=== PATIENT | male | born 1985 | race Hispanic/Latino ===

== ENCOUNTER 2016-09-04 06:19 | Emergency (ER) | payer OTHER ==
[2016-09-04 06:19] VITALS: BMI 19.9
[2016-09-04 06:45] VITALS: O2SAT 100
--- NOTE | 2016-09-04 07:58 | C.PDOC ---
History Of Present Illness 31-year-old male, presents to the emergency department with complaints of pain to right shoulder and right hip s/p fall from standing, yesterday. Patient took one Aleve with minimal relief. No head/neck trauma. No other complaints. - HPI Time Seen by Provider: 09/04/16 07:08 Chief Complaint (Nursing): Trauma History Per: Patient History/Exam Limitations: no limitations Onset/Duration Of Symptoms: Days Past Medical History Reviewed: Historical Data, Nursing Documentation, Vital Signs Vital Signs: Last Vital Signs Temp 97.9 F 09/04/16 08:16 Pulse 74 09/04/16 08:16 Resp 16 09/04/16 08:16 BP 130/80 09/04/16 08:16 Pulse Ox 100 09/04/16 08:16 - Medical History PMH: Asthma, Back Problems (scoliosis) Denies: Diabetes, Hepatitis, HIV, HTN, Seizures, Sexually Transmitted Disease Family History: States: Unknown Family Hx - Social History Hx Tobacco Use: No Hx Alcohol Use: No Hx Substance Use: No - Immunization History Hx Tetanus Toxoid Vaccination: Yes Hx Influenza Vaccination: Yes Hx Pneumococcal Vaccination: Yes Review Of Systems Except As Marked, All Systems Reviewed And Found Negative. Constitutional: Negative for: Fever, Chills Cardiovascular: Negative for: Chest Pain, Palpitations Respiratory: Negative for: Cough, Shortness of Breath Gastrointestinal: Negative for: Vomiting Musculoskeletal: Negative for: Back Pain Skin: Negative for: Rash Neurological: Negative for: Weakness, Numbness Physical Exam - Physical Exam Appears: Non-toxic, No Acute Distress Head: Atraumatic, Normacephalic Eye(s): bilateral: Normal Inspection, PERRL Nose: Normal Oral Mucosa: Moist Lips: Normal Appearing Neck: Normal ROM Cardiovascular: Rhythm Regular Respiratory: No Accessory Muscle Use Extremity: Normal ROM (RIGHT HIP, RIGHT SHOULDER.), No Tenderness, No Deformity , No Swelling Neurological/Psych: Oriented x3, Normal Speech ED Course And Treatment O2 Sat by Pulse Oximetry: 100 - Other Rad R hip X-Ray: Interpreted by Me (neg) Medical Decision Making Medical Decision Making: fall from ? height yesterday with R hip contusion, normal exam and R-hip films. h/o OD substance abuse. Disposition Doctor Will See Patient In The: Office Counseled Patient/Family Regarding: Studies Performed, Diagnosis - Disposition Referrals: Josafat Cisse DO [Staff Provider] - Disposition: HOME/ ROUTINE Disposition Time: 08:07 Condition: GOOD Additional Instructions: continue ice packs to the affected area 1/2 hour per hour, and Motrin 600 mg every 6 hours as needed Follow-up w Dr. Cisse as needed R hip x-rays are negative today. Instructions: Contusion in Adults (ED) - Clinical Impression Clinical Impression: Contusion of hip, right - Scribe Statement The provider has reviewed the documentation as recorded by the Scribkimmy Monae All medical record entries made by the Keishaibkimmy were at my direction and personally dictated by me. I have reviewed the chart and agree that the record accurately reflects my personal performance of the history, physical exam, medical decision making, and the department course for this patient. I have also personally directed, reviewed, and agree with the discharge instructions and disposition.
[2016-09-04 08:16] VITALS: BP 130/80; PULSE 74; RESP 16; TEMP 97.9
--- NOTE | 2016-09-04 08:55 | RAD ---
PROCEDURE: Right Hip Radiographs. HISTORY: Fall with R hip contusion yesterday COMPARISON: None. FINDINGS: BONES: Normal. No fracture. JOINTS: Normal. SOFT TISSUES: Normal. OTHER FINDINGS: None. IMPRESSION: Normal radiographs of right hip.
--- NOTE | 2016-09-14 08:43 | CARD ---
APPROVED REPORT EKG Measurement Heart [id number] <Conclusion> Normal sinus rhythm Normal ECG
== END 2016-09-04 08:17 | disposition home or self-care (01) ==
LOC: C.ER 06:19
DX: S70.01XA Contusion of right hip, initial encounter (principal); W18.30XA Fall on same level, unspecified, initial encounter